=== PATIENT | female | born 1990 | race African-American/Black ===

== ENCOUNTER → 2017-09-24 | Day surgery (SDC) | payer BC, MEDICARE ==
[2017-09-19 11:48] LABS: BASOPHILS % 0.2 % (0.0-1.0); EOSINOPHILS # (AUTO) 0.1 (0.0-0.4); HEMATOCRIT 33.5 % (34.2-44.1); HEMOGLOBIN 10.8 g/dL (12.0-16.0); LYMPHOCYTES # (AUTO) 1.3 (1.0-3.2); LYMPHOCYTES % 25.6 % (18.0-39.1); MEAN CORPUSCULAR HEMOGLOBIN 27.1 pg (28-32); MEAN CORPUSCULAR HGB CONC 32.2 g/dL (31-35); MONOCYTES # (AUTO) 0.4 (0.2-0.8); MONOCYTES % 7.8 % (4.4-11.3); NEUTROPHILS # (AUTO) 3.3 (2.1-6.9); NEUTROPHILS % 65.2 % (38.7-80.0); PLATELET COUNT 249 x10e3/uL (140-360); RED BLOOD COUNT 3.99 x10e6/uL (3.6-5.1); RED CELL DISTRIBUTION WIDTH 14.8 % (11.7-14.4)
[~2017-09-24] MED LIST: BUPIVACAINE 0.25% 30ML SDV INJ ONE; CEFAZOLIN SOD 1 GM VIAL ONE; DEXAMETHASONE SOD PHOS INJ 4 MG/ML VIAL ONE; FENTANYL CITRATE/PF 100MCG/2 ML INJ ONE; LIDOCAINE HCL 2% LOCAL INJ 5 ML SDV VIAL INJ ONE; MIDAZOLAM HCL 2 MG/2 ML VIAL ONE; ONDANSETRON HCL INJ 2 MG/ML VIAL ONE; PROPOFOL IV EMULSION 10 MG/ML 20 ML VIAL ONE; SEVOFLURANE INHAL SOLN 250 ML PEN BTL ONE
--- NOTE | 2017-09-24 16:21 | Operative Report ---
DATE OF PROCEDURE: September 24, 2017 PREOPERATIVE DIAGNOSIS: Emmy's cyst. POSTOPERATIVE DIAGNOSIS: Emmy's cyst. PROCEDURE: Excision of Emmy's cyst. COMPLICATIONS: None. ESTIMATED BLOOD LOSS: Minimal. PROCEDURE: The patient was taken to the OR and under general anesthesia she was prepped and draped in sterile fashion and placed in the lithotomy position. A 3 cm cyst was noticed in the anterior wall of the vagina in the midline at the level of the mid urethra. A Romero catheter was placed inside the bladder for drainage to protect the urethra. Marcaine 1% was injected subvaginally around Emmy's cyst and with the scalpel a skin incision was made on the vagina anterior at the level of the cyst. The cyst was dissected using Metzenbaum scissors all around and was excised using the Metzenbaum scissors. The cyst revealed whitish discharge when it ruptured that was suctioned. The cyst wall was sent to pathology. After removal of the cyst, the cyst bed was closed in 2 layers of Vicryl 3-0 followed by a layer of 3-0 Vicryl for the vaginal skin. The Romero catheter was kept in place and antibiotics were given to the patient for one week to be removed later as the procedure was very close to the urinary tract. At the end of the procedure, the laps, instrument and needle count was correct x2. Job#: [id number]
== END | disposition home or self-care (01) ==
LOC: OR 10:04
PROVIDERS: ATTEND Obstetrics & Gynecology
DX: Q52.4 Other congenital malformations of vagina (principal)
CPT/HCPCS: 36415; 57135; 81025; 84702; 85025; 88304; J0690; J1100; J2001; J2250; J2405